=== PATIENT | male | born 1985 | race Caucasian/White ===

== ENCOUNTER 2018-09-09 09:17 | Outpatient (REF) | payer MEDICARE, MEDICAID, SELFPAY ==
[2018-09-09 22:13] LABS: HGB 16.4 g/dL (13.5-17.5); Mean Corp. HGB Concentration 32.2 g/dL (32.0-36.0); Mean Corpuscular Hemoglobin 31.6 pg (27.0-33.0); Mean Corpuscular Volume 98.3 fL (80-95); Mean Platelet Volume 12.5 fL (8.0-11.0); Platelet Count 210 x1000/uL (130-400); RBC 5.19 m/cumm (4.50-6.00); RBC Distribution Width 13.6 % (11.8-14.1); White Blood Cell Count 7.38 k/cumm (4.4-10.8)
[2018-09-09 22:30] LABS: ALT 46 U/L (12-78); AST 25 U/L (15-37); Albumin 4.6 g/dL (3.4-5.0); Alkaline Phosphatase 69 U/L (46-116); BUN 10 mg/dL (7-18); Bilirubin, Total 1.1 mg/dL (0.2-1.0); CREATININE 0.96 mg/dL (0.70-1.30); Calcium 9.9 mg/dL (8.5-10.1); Chloride 101 mmol/L (98-107); Glucose 103 mg/dL (70-100); Potassium 3.9 mmol/L (3.5-5.1); Sodium 139 mmol/L (136-145); TSH 3.06 uIU/mL (0.358-3.74); Total Protein 7.9 g/dL (6.4-8.2)
== END 2018-09-09 09:37 ==
LOC: NCHCN 09:17
PROVIDERS: PCP Family Medicine; Visit Provider Registered Nurse
DX: F41.1 Generalized anxiety disorder (principal); R71.8 Other abnormality of red blood cells
CPT/HCPCS: 80053; 85027; 84443